=== PATIENT | female | born 1980 | race Caucasian/White ===

== ENCOUNTER 2017-02-05 23:07 | Emergency (ER) | payer OTHER ==
[~2017-02-05] VITALS: Ht 167.6 cm; Wt 72.0 kg
[~2017-02-05 23:07] MED LIST: PRENATAL1 EACH PO; SYNTHROID125 MCG PO
[2017-02-05 23:31] LABS: HEMATOCRIT 42.3 % (36.0-46.0); MCHC 33.8 G/DL (30.0-36.0); MCV 91.8 FL (83-99); MEAN PLAT.VOLUME 9.9 uM^3 (9.5-12.4); PLATELET COUNT 274 K/uL (156-360); RBC DIS.WIDTH-CV 13.1 % (11.8-14.6); RBC DIS.WIDTH-SD 44.2 % (39-53); RED BLOOD COUNT 4.61 M/uL (3.80-5.20); WHITE BLOOD COUNT 6.4 K/uL (4.1-10.2)
[2017-02-05 23:45] LABS: CHLORIDE 106 mEq/L (99-109); POTASSIUM 3.7 mEq/L (3.7-5.4); SODIUM 136 mEq/L (136-147)
[2017-02-05 23:47] LABS: GLUCOSE 81 mg/dL (70-99)
[2017-02-05 23:48] LABS: ANION GAP 12 MEQ/L (2-14)
[2017-02-05 23:51] LABS: GFR ESTIMATE (CALCULATED) > 59 mL/min/; UREA NITROGEN (BUN) 7 mg/dL (9-23)
[2017-02-05 23:58] LABS: TROP-I INTERPRETATION NEGATIVE; TROPONIN-I < 0.01 ng/mL (0.0-0.30)
[2017-02-06 00:15] LABS: D-DIMER ELISA 0.82 mg/L FEU (< 0.57)
[2017-02-06 00:21] LABS: QUANTITATIVE HCG < 4.0 MIU/ML
[2017-02-06] MEDS ORDERED: PERCOCET 5/31 TABLET PO (02:19)
[2017-02-06] MEDS ORDERED: LIDODERM 5% P1 PATCH TD (02:19)
[2017-02-06 03:06] VITALS: BP 96/58
== END 2017-02-06 03:11 | disposition home or self-care (01) ==
LOC: EME 23:07
DX: R07.89 Other chest pain (principal); M94.0 Chondrocostal junction syndrome [Tietze]; S00.93XD Contusion of unspecified part of head, subsequent encounter; W18.30XD Fall on same level, unspecified, subsequent encounter; K50.90 Crohn's disease, unspecified, without complications; E03.9 Hypothyroidism, unspecified; F17.200 Nicotine dependence, unspecified, uncomplicated
CPT/HCPCS: 70450; 71020; 71275; 80048; 84443; 84484; 84702; 85027; 85379; 93005; 99281; 99285; J1885; J2270; J2405; J3010; J7030

== ENCOUNTER 2017-10-07 22:59 | Emergency (ER) | payer OTHER ==
[~2017-10-07] VITALS: Ht 167.6 cm; Wt 65.6 kg
[~2017-10-07 22:59] MED LIST changes: +LIDODERM 5% P1 PATCH TD; +PERCOCET 5/31 TABLET PO
[2017-10-08 00:04] LABS: HEMATOCRIT 41.2 % (36.0-46.0); HEMOGLOBIN 14.3 G/DL (11.9-15.5); MCH 31.5 PG (29.0-34.0); MCHC 34.7 G/DL (30.0-36.0); MCV 90.7 FL (83-99); PLATELET COUNT 240 K/uL (156-360); RBC DIS.WIDTH-CV 12.5 % (11.8-14.6); RBC DIS.WIDTH-SD 41.1 % (39-53); RED BLOOD COUNT 4.54 M/uL (3.80-5.20); WHITE BLOOD COUNT 9.1 K/uL (4.1-10.2)
[2017-10-08 00:12] LABS: CHLORIDE 108 mEq/L (99-109); MAGNESIUM 2.4 mg/dL (1.3-2.7); POTASSIUM 3.6 mEq/L (3.7-5.4); SODIUM 143 mEq/L (136-147)
[2017-10-08 00:14] LABS: GLUCOSE 83 mg/dL (70-99)
[2017-10-08 00:17] LABS: CREATININE 0.8 mg/dL (0.6-1.3); GFR ESTIMATE (CALCULATED) > 59 mL/min/
[2017-10-08 00:18] LABS: UREA NITROGEN (BUN) 10 mg/dL (9-23)
[2017-10-08 00:24] LABS: TROP-I INTERPRETATION NEGATIVE; TROPONIN-I < 0.01 ng/mL (0.0-0.30)
[2017-10-08 02:07] LABS: APPEARANCE CLEAR ((CLEAR)); BILIRUBIN NEGATIVE; BLOOD SMALL; COLOR STRAW ((YELLOW)); GLUCOSE (STRIP) NEGATIVE; KETONES NEGATIVE; LEUKOCYTES NEGATIVE; NITRITE NEGATIVE; PROTEIN (STRIP) NEGATIVE; SPECIFIC GRAVITY 1.002 (1.000-1.030); UROBILINOGEN 0.2 MG/DL (0.2-1.0)
[2017-10-08 02:10] LABS: BACTERIA NONE SEEN /HPF; EPITHELIAL CELLS NONE SEEN /HPF; MUCUS NONE SEEN /LPF; RED BLOOD CELLS 0-5 /HPF (0-5); UCUL ADDED? NO; WHITE BLOOD CELLS 0-5 /HPF (0-5)
[2017-10-08 02:25] LABS: ALBUMIN 4.5 G/DL (3.2-4.8); ALKALINE PHOSPHATASE 61 IU/L (3-129); ALT (GPT) 24 IU/L (3-49); AST (GOT) 29 IU/L (2-34); DIRECT BILIRUBIN 0.1 mg/dL (0.0-0.3); TOTAL BILIRUBIN 0.2 MG/DL (0.0-1.0); TOTAL PROTEIN 7.6 G/DL (6.4-8.3)
[2017-10-08] MEDS ORDERED: PERCOCET 5/31 TABLET PO (02:39)
[2017-10-08 02:41] LABS: LIPASE 27 U/L (1.0-51.0)
[2017-10-08 02:49] VITALS: BP 92/55
[2017-10-08 08:28] LABS: THYROTROPIN (TSH) 0.38 MIU/L (0.4-5.5)
== END 2017-10-08 02:50 | disposition home or self-care (01) ==
LOC: EME 22:59
PROVIDERS: Emergency Medicine
DX: R07.89 Other chest pain (principal); F17.200 Nicotine dependence, unspecified, uncomplicated; K50.90 Crohn's disease, unspecified, without complications; K85.90 Acute pancreatitis without necrosis or infection, unspecified; Z90.710 Acquired absence of both cervix and uterus; Z90.49 Acquired absence of other specified parts of digestive tract; Z88.0 Allergy status to penicillin
CPT/HCPCS: 71046; 71275; 80048; 80076; 81003; 83690; 83735; 84443; 84484; 85027; 85379; 93005; 93971; 94640; 99281; 99285; J2060; J2270; J2405; S0028